=== PATIENT | male | born 1970 | race Two or more races ===

== ENCOUNTER 2024-10-16 10:25 | Inpatient (IN) | payer MEDICAID, OTHER ==
[~2024-10-16] VITALS: Ht 190.5 cm; Wt 110.0 kg
--- NOTE | 2024-10-16 10:34 | ED.PDOC ---
History of Present Illness HPI Comments 54-year-old male with PMHx CHF, HTN, DM brought in by EMS presents with a chief complaint of chest pain, nausea, vomiting, diaphoresis, and hematemesis. Patient was found in his car in the [employer] parking lot with bright red blood on the ground and dark red blood in the floorboard of the car. Patient also reports that he is having chest tightness and was placed on Oxygen and given NTG. Patient has not been compliant with his medications per EMS. Patient did have one episode of losing consciousness per EMS. Patient arrived pale in color and diaphoretic. Time Seen by MD: 10:20 Reviewed Notes: Medications, Allergies Allergies: Coded Allergies: NO KNOWN ALLERGIES (Unverified , 10/16/24) Information Source: Patient, Emergency Med Personnel Mode of Arrival: EMS Severity: Moderate Timing: Hours Duration: Since onset Prehospital treatment: 12 Lead EKG, Asp Net Programmer, IVF Past Medical History PAST MEDICAL HISTORY: CHF, DM, HTN Surgical History: Denies all surgeries Family History Family History: Reviewed,noncontributory to illness Social History Smoker: Non-Smoker Alcohol: Denies ETOH Use Drugs: Denies Drug Use Lives In: Home Constitutional: denies: chills, diaphoresis, fatigue, fever, malaise, sweats, weakness, others EENTM: denies: blurred vision, double vision, ear bleeding, ear discharge, ear drainage, ear pain, ear ringing, eye pain, eye redness, hearing loss, mouth pain, mouth swelling, nasal discharge, nose bleeding, nose congestion, nose pain, photophobia, tearing, throat pain, throat swelling, voice changes, others Respiratory: denies: cough, hemoptysis, orthopnea, SOB at rest, shortness of breath, SOB with excertion, stridor, wheezing, others Cardiovascular: reports: chest pain, diaphoresis; denies: dizzy spells, Dyspnea on exertion, edema, irregular heart beat, left arm pain, lightheadedness, palpi tations, PND, syncope, others Gastrointestinal: reports: hematemesis, nausea, vomiting; denies: abdomen distended, abdominal pain, blood streaked bowels, constipated, diarrhea, dysphagia, difficulty swallowing, melena, poor appetite, poor fluid intake, rectal bleeding, rectal pain, others Genitourinary: denies: burning, dysuria, flank pain, frequency, hematuria, incontinence, penile discharge, penile sore, pain, testicle pain, testicle swelling, urgency, others Neurological: denies: dizziness, fainting, headache, left sided numbness, left sided weakness, numbness, paresthesia, pre-existing deficit, right sided numbness, right sided weakness, seizure, speech problems, tingling, tremors, weakness, others Musculoskeletal: denies: back pain, gout, joint pain, joint swelling, muscle pain, muscle stiffness, neck pain, others Integumetry: denies: bruises, change in color, change in hair/nails, dryness, laceration, lesions, lumps, rash, wounds, others Allergic/Immunocompromised: denies: Difficulty Healing, Frequent Infections, Hives, Itching, others Hematologic/Lymphatic: denies: anemia, blood clots, easy bleeding, easy bruising, swollen glands, others Endocrine: denies: excessive hunger, excessive sweating, excessive thirst, excessive urination, flushing, intolerance to cold, intolerance to heat, unexplained weight gain, unexplained weight loss, others Psychiatric: denies: anxiety, bipolar disorder, depression, hopeless, panic disorder, schizophrenia, sleepless, suicidal, others All Other Systems: Reviewed and Negative Physical Exam General Appearance: Moderate Distress, Normal HEENT: Normal ENT Inspection, Pharynx Normal, TMs Normal Neck: Full Range of Motion, Non-Tender, Normal, Normal Inspection Respiratory: Chest Non-Tender, Lungs Clear, No Accessory Muscle Use, No Respiratory Distress, Normal Breath Sounds Cardiovascular: No Edema, No JVD, No Murmur, No Gallop, Normal Peripheral Pulses, Regular Rate/Rhythm Breast Exam: Deferred Gastrointestinal: No Organomegaly, Non Tender, No Pulsatile Mass, Normal Bowel Sounds, Soft Genitalia: Deferred Pelvic: Deferred Rectal: Deferred Extremities: No calf tenderness, Normal capillary refill, Normal inspection, Normal range of motion, Non-tender, No pedal edema Musculoskeletal : Apperance: Normal Neurologic: Alert, preboarder II-XII nml as Tested, No Motor Deficits, Normal Affect, Normal Mood, No Sensory Deficits Cerebellar Function: NOT DONE Reflexes: NOT DONE Skin: Dry, Pallor, Warm Peripheral Pulses: 3+ Radial (R), 3+ Radial (L) Lymphatic: No Adenopathy Was a procedure done? Was a procedure done?: No EKG EKG : Pulse Rate (adult): 93 [place]: Normal Cardiac Rhythm: NSR Block: None Hypertrophy: None ST: Normal Differential Dx Considerations may include: Anemia Electrolyte imbalance X-Ray, Labs, Meds, VS Vital Signs Date Time Temp Pulse Resp B/P (MAP) Pulse Ox O2 Delivery O2 Flow Rate FiO2 10/16/24 10:34 93 10/16/24 10:26 93 10/16/24 10:25 97.5 116 18 149/97 (114) 98 97.5 Lab Test 10/16/24 10:33 Range/Units White Blood Count Pending Red Blood Count Pending Hemoglobin Pending Hematocrit Pending Mean Corpuscular Volume Pending Mean Corpuscular Hemoglobin Pending Mean Corpuscular Hemoglobin Concent Pending Red Cell Distribution Width Pending Platelet Count Pending Mean Platelet Volume Pending Neutrophils (%) (Auto) Pending Lymphocytes (%) (Auto) Pending Monocytes (%) (Auto) Pending Basophils (%) (Auto) Pending Neutrophils # (Auto) Pending Lymphocytes # (Auto) Pending Monocytes # (Auto) Pending Sodium Level Pending Potassium Level Pending Chloride Level Pending Carbon Dioxide Level Pending Anion Gap Pending Blood Urea Nitrogen Pending Creatinine Pending Glomerular Filtration Rate Calc Pending BUN/Creatinine Ratio Pending Serum Glucose Pending Calcium Level Pending Troponin I High Sensitivity Pending Current Medications Medications (Trade) Dose Ordered Sig/Jakob Route Start Time Stop Time Status Last Admin Sodium Chloride 1,000 ml @ 1,000 mls/hr Q1H ONCE IV 10/16/24 10:30 10/16/24 11:29 10/16/24 10:40 Patient alert. Complaining of chest pain nausea vomiting. Abdomen is soft nontender. Vitals stable. Saturation pristine on room air. He did have blood in his car from in his vomiting. Has been having rectal bleeding prior to this. Establish intravenous access. Was given fluids. Was started on Protonix drip. GI consultation. Reviewed his history. Continue to monitor. EKG reviewed does not show any acute changes. Time of 1ST Reevaluation: 10:50 Reevaluation 1ST: Unchanged Patient Education/Counseling: Diagnosis, Treatment Family Education/Counseling: No Family Present Departure 1 Departure Time of Disposition: 10:42 Impression: Primary Impression: GI bleed Qualified Codes: K92.2 - Gastrointestinal hemorrhage, unspecified Additional Impressions: Chest pain of unknown etiology Uncontrolled diabetes mellitus Qualified Codes: E13.65 - Other specified diabetes mellitus with hyperglycemia Disposition: ADMITTED INPATIENT Admit to: Med Surg Condition: Guarded Critical Care Note Critical Care Time?: Yes (90 min-critical care time only) Critical care comment: GI bleed started Protonix continue to monitor Stability Stability form required: No Heart Score Heart Score: Heart Score Response (Comments) Value History Slightly Suspicious 0 EKG Normal 0 Age 45-64 1 Risk Factors >3 or Hx ASHD 2 Troponin Normal limit 0 Total 3 I personally scribed for NUSRAT JUAREZ MD ([email or web address]) on 10/16/24 at 10:34. Electronically submitted by Aj Edgar ([email or web address]). NUSRAT JUAREZ MD Oct 16, 2024 10:34
[2024-10-16] MEDS: SODIUM CHLORIDE 0.9% 1,000 ML IV ONE ×2 (10:40→11:18)
[2024-10-16 10:41] LABS: Basophils # (auto) 0 10 ^3/uL (0-0.2); Basophils % (auto) 0.4 % (0.0-2.0); Eosinophils # (auto) 0.1 10 ^3/uL (0-0.8); Eosinophils % (auto) 0.5 % (0.0-7.0); Hematocrit 34.4 % (41.0-53.0); Hemoglobin 11.2 g/dL (13.5-17.5); Lymphocytes # (auto) 2.8 10 ^3/uL (0.4-5.4); Lymphocytes % (auto) 23.4 % (10.0-50.0); Mean Corpuscular Hemoglobin 27.5 pg (28.0-32.0); Mean Corpuscular Hgb Conc. 32.6 g/dL (32.0-36.0); Mean Corpuscular Volume 84.4 fL (80.0-100.0); Monocytes # (auto) 0.6 10 ^3/uL (0-1.3); Monocytes % (auto) 5.3 % (0.0-12.0); Neutrophils # (auto) 8.5 10 ^3/uL (1.6-8.6); Neutrophils % (auto) 70.4 % (37.0-80.0); Nucleated Red Blood Cells % 0.1 %; Platelet Count (auto) 312 10^3/uL (140-450); Red Blood Cells 4.07 10^6/uL (4.5-5.90); Red Cell Distribution Width 15.5 % (11.8-14.3); White Blood Cell 12.1 10^3/uL (4.4-10.8)
[2024-10-16 10:51] LABS: Anion Gap 9 (5-15); Carbon Dioxide 20 mmol/L (20-31); Potassium 4.8 mmol/L (3.5-5.1); Sodium 138 mmol/L (136-145)
[2024-10-16 10:52] LABS: Calcium 8.8 mg/dL (8.7-10.4)
[2024-10-16 10:56] LABS: Chloride 109 mmol/L (98-107)
[2024-10-16 10:57] LABS: BUN/Creatinine Ratio 33.9 (10.0-20.0); Blood Urea Nitrogen 40 mg/dL (9-23); Glucose 303 mg/dL (74-106)
--- NOTE | 2024-10-16 11:08 | DVH ---
CHEST RADIOGRAPH Indication: sob Technique: Single frontal view of the chest was obtained Comparison: None FINDINGS: The cardiac silhouette is enlarged. The lungs demonstrate perihilar airspace opacities. The pulmonary vasculature is prominent. There is no pleural effusion.. There is no pneumothorax. IMPRESSION: 1. Cardiomegaly with pulmonary vascular congestion and bilateral perihilar airspace opacities.
[2024-10-16] MEDS: PANTOPRAZOLE 80 MG in SODIUM CHL 0.9% 100 ML IV ONE (11:36)
[2024-10-16] MEDS ORDERED: LISI10TA34 PO (14:07)
[2024-10-16] MEDS ORDERED: FURO40TA4 PO (14:07)
[2024-10-16] MEDS ORDERED: GLIP5TAB21 PO (14:07)
[2024-10-16] MEDS ORDERED: SPIR25TA8 PO (14:07)
[2024-10-16] MEDS ORDERED: IPRATROPIUM BROM 0.5 MG/2.5ML INH SOL NEB PRN (14:15)
[2024-10-16] MEDS ORDERED: ALBUTEROL SULF 2.5 MG/0.5ML(0.5%) NEB SOLN NEB PRN (14:15)
[2024-10-16 14:25] LABS: LDL Cholesterol 89 mg/dL (< 100); Triglycerides 171 mg/dL (< 150)
[2024-10-16 14:26] LABS: Cholesterol 147 mg/dL (< 200)
[2024-10-16 14:28] LABS: HDL Cholesterol 36 mg/dL (40-59)
[2024-10-16 15:00] VITALS: O2SAT 97
--- NOTE | 2024-10-16 15:04 | DVHHP2 ---
History of Present Illness Reason for Visit: Vomiting blood History of Present Illness A 54-year-old male with a history of CHF, hypertension, diabetes, and obesity was brought to the emergency department by EMS after being found in his car at a [employer] parking lot with evidence of gastrointestinal bleeding. Patient reports hematemesis associated with nausea and hematochezia starting today prior. EMS noted blood on the ground outside the vehicle and dark red blood inside the car. Patient also complains of chest tightness, for which he was given oxygen and nitroglycerin by EMS. Upon assessment, no abdominal pain or chest pain was reported and he denies any known history of GI bleeding. Patient was noted to be pale and diaphoretic upon EMS arrival. There is also a reported episode of syncope, per EMS, and noncompliance with medications. Past Medical History As stated in HPI Past Surgical History Laminectomy Past Social History The patient lives at home, denies smoking, alcohol or illicit drugs abuse. Review of Systems Constitutional: Yes: Malaise; No: Fever, Chills, Sweats, Weakness, Other Eyes: No: Pain, Vision change, Conjunctivae inflammation, Eyelid inflammation, Other, Redness ENT: No: Ear pain, Ear discharge, Nose pain, Nose discharge, Nose congestion, Mouth pain, Mouth swelling, Throat pain, Throat swelling, Other Respiratory: No: Cough, Dry, Shortness of breath, SOB with excertion, Wheezing, Hemoptysis, Pleuritic Pain, Sputum, Wheezing, Other Cardiovascular: No: Chest Pain, Palpitations, Orthopnea, Paroxysmal Noc. Dyspnea, Edema, Lt Headedness, Other Gastrointestinal: Nausea, Vomiting, Abdominal Pain, Melena, Hematochezia; No: Diarrhea, Constipation, Other Genitourinary: No Dysuria, No Frequency, No Incontinence, No Hematuria, No Retention, No Other Musculoskeletal: No: other, neck pain, shoulder pain, arm pain, back pain, hand pain, leg pain, foot pain Skin: No: Rash, Lesions, Jaundice, Bruising, Other Neurological: No: Weakness, Numbness, Incoordination, Change in speech, Confusion, Seizures, Other Allergies: Coded Allergies: NO KNOWN ALLERGIES (Unverified , 10/16/24) Medications Current Medications Medications Dose Ordered Sig/Jakob Route Start Time Stop Time Status Last Admin Dose Admin Ceftriaxone Sodium 50 ml @ 100 mls/hr DAILY@09 IV 10/17/24 09:00 UNV Metronidazole 100 ml @ 100 mls/hr Q8HR IV 10/16/24 22:00 UNV Glipizide 5 mg BID PO 10/16/24 22:00 UNV Spironolactone 25 mg DAILY PO 10/17/24 10:00 UNV Patient Own Medication 1 tab DAILY PO 10/17/24 10:00 UNV Albuterol 2.5 mg Q4HPRN PRN NEB 10/16/24 14:15 UNV Ipratropium [place] 0.5 mg Q4HPRN PRN NEB 10/16/24 14:15 UNV Exam Vital Signs Vital Signs Date Time Temp Pulse Resp B/P (MAP) Pulse Ox O2 Delivery O2 Flow Rate FiO2 10/16/24 14:00 98.0 75 15 153/87 (109) 99 98.0 10/16/24 10:50 Nasal Cannula* 2 28 General Appearance: Alert, Oriented X3, Cooperative, mild distress HEENT: Atraumatic, PERRLA, EOMI, Mucous membr. moist/pink Respiratory: Clear to auscultation, Normal air movement Cardiovascular: Regular rate, Normal S1, Normal S2 Abdominal: Normal bowel sounds, Soft, No tenderness Extremities: No clubbing, No cyanosis, No edema, Normal pulses Skin: No rashes Neuro: Normal speech, Normal tone Psych/Mental Status: Mental status NL Labs/Xrays Labs Test 10/16/24 11:47 10/16/24 10:33 Range/Units Troponin I High Sensitivity 9 </=54 ng/L Triglycerides Level 171 H < 150 mg/dL Cholesterol Level 147 < 200 mg/dL LDL Cholesterol 89 < 100 mg/dL HDL Cholesterol 36 L 40-59 mg/dL Thyroid Stimulating Hormone (TSH) 1.05 0.55-4.78 uIU/mL White Blood Count 12.1 H 4.4-10.8 10^3/uL Red Blood Count 4.07 L 4.5-5.90 10^6/uL Hemoglobin 11.2 L 13.5-17.5 g/dL Hematocrit 34.4 L 41.0-53.0 % Mean Corpuscular Volume 84.4 80.0-100.0 fL Mean Corpuscular Hemoglobin 27.5 L 28.0-32.0 pg Mean Corpuscular Hemoglobin Concent 32.6 32.0-36.0 g/dL Red Cell Distribution Width 15.5 H 11.8-14.3 % Platelet Count 312 140-450 10^3/uL Mean Platelet Volume 7.2 6.9-10.8 fL Neutrophils (%) (Auto) 70.4 37.0-80.0 % Lymphocytes (%) (Auto) 23.4 10.0-50.0 % Monocytes (%) (Auto) 5.3 0.0-12.0 % Eosinophils (%) (Auto) 0.5 0.0-7.0 % Basophils (%) (Auto) 0.4 0.0-2.0 % Neutrophils # (Auto) 8.5 1.6-8.6 10 ^3/uL Lymphocytes # (Auto) 2.8 0.4-5.4 10 ^3/uL Monocytes # (Auto) 0.6 0-1.3 10 ^3/uL Eosinophils # (Auto) 0.1 0-0.8 10 ^3/uL Basophils # (Auto) 0 0-0.2 10 ^3/uL Nucleated Red Blood Cells 0.1 % Sodium Level 138 136-145 mmol/L Potassium Level 4.8 3.5-5.1 mmol/L Chloride Level 109 H 98-107 mmol/L Carbon Dioxide Level 20 20-31 mmol/L Anion Gap 9 5-15 Blood Urea Nitrogen 40 H 9-23 mg/dL Creatinine 1.18 0.700-1.30 mg/dL Glomerular Filtration Rate Calc 72 >90 mL/min BUN/Creatinine Ratio 33.9 H 10.0-20.0 Serum Glucose 303 H 74-106 mg/dL Hemoglobin A1c 7.7 H <5.7 % A1C Calcium Level 8.8 8.7-10.4 mg/dL PROCEDURE(s): CXRP - CHEST PORTABLE REASON: sob ORDER NUMBER(s): [id number], ACCESSION NUMBER(s): [id number] CHEST RADIOGRAPH Indication: sob Technique: Single frontal view of the chest was obtained Comparison: None FINDINGS: The cardiac silhouette is enlarged. The lungs demonstrate perihilar airspace opacities. The pulmonary vasculature is prominent. There is no pleural effusion.. There is no pneumothorax. IMPRESSION: 1. Cardiomegaly with pulmonary vascular congestion and bilateral perihilar airspace opacities. Assessment/Plan Assessment/Plan # rule out upper GI bleed # rule out lower GI bleed, less likely with hematemesis but bright blood per rectum is concerning Admit to telemetry unit PPI GI consult NPO Monitor H&H, transfuse PRBC for hemoglobin less than 7 IV fluid Stool for guaiac/FOBT # chest pain to rule out ACS Cardiomegaly Echocardiogram Cardiology consult # syncope possibly secondary to blood loss and hypotension Monitor # leukocytosis Empiric antibiotic Blood and urine culture # diabetes type 2, with hyperglycemia A1C 7.7 Insulin sliding scale check A1c Glimepiride, statins # medication noncompliance related to decompensation Education on compliance Plan discussed with: Patient My Orders Orders - SANJEEV MAHAJAN Procedure Category Date Status Time B-Type Natriuretic LAB 10/16/24 In Process Peptide 14:02 Blood Culture ALESHA 10/16/24 In Process 14:02 Ceftriaxone 1gm/50ml PHA 10/17/24 Logged D5w (Rocephin) 09:00 Ceftriaxone 1gm/50ml PHA 10/16/24 Logged D5w (Rocephin) 14:15 Metronidazole PHA 10/16/24 Logged 500mg/100ml (Flagyl 14:15 Metronidazole PHA 10/16/24 Logged 500mg/100ml (Flagyl 22:00 Urinalysis LAB 10/16/24 Logged 14:02 Echo 2d Mode Cardiac US 10/16/24 Logged DOP 14:02 Glipizide Tablet PHA 10/16/24 Logged (Glucotrol Tablet) 22:00 Spironolactone PHA 10/17/24 Logged (Aldactone) 10:00 (Nf) Lisinopril PHA 10/17/24 Logged 10:00 Albuterol Medneb PHA 10/16/24 Logged (Ventolin Medneb) 14:15 Ipratropium Medneb PHA 10/16/24 Logged (Atrovent Medneb) 14:15 Date of Service: Oct 16, 2024 Billing Provider: SANJEEV MAHAJAN Common Visit Codes: [id number] INP/OBS CARE (HIGH) SANJEEV MAHAJAN Oct 16, 2024 15:04
[2024-10-16] MEDS ORDERED: ONDANSETRON HCL 4 MG/2 ML VIAL IV PRN (15:15)
[2024-10-16 15:37] VITALS: BP 153/87; PULSE 75; RESP 15; TEMP 98; O2SAT 99
[2024-10-16] MEDS ORDERED: DEXTROSE (50%) 50ML SYRG IV PRN (16:00)
[2024-10-16] MEDS: SODIUM CHLORIDE 0.9% 1,000 ML IV SCH (16:33)
[2024-10-16] MEDS: cefTRIAXone 1GM/50ML D5W 50 ML IV ONE (16:40)
[2024-10-16] MEDS: metroNIDAZOLE 500MG/100ML 100 ML IV ONE (16:43)
[2024-10-16 16:55] LABS: Urine Bacteria None Seen /hpf (None Seen)
[2024-10-16 17:00] LABS: Urine Blood Negative /uL (Negative); Urine Clarity Clear (Clear); Urine Color Colorless (Yellow); Urine Protein, UAD Negative (Negative); Urine Specific Gravity 1.016 (1.001-1.035); Urine Squamous Epithelial Cell None Seen /hpf (<5); Urine Urobilinogen Normal (Negative); Urine WBC < 1 /HPF (0-3); Urine pH 6.5 (5.0-9.0)
[2024-10-16] MEDS: InsuLIN REG 1unit/0.01ml Soln (100units/ml) SC SCH (18:00)
[2024-10-16] MEDS: ACCU-CHEK COMFORT CURVE STRIP VI SCH (18:13)
--- NOTE | 2024-10-16 21:59 | DVHINCON2 ---
Date of service: Oct 16, 2024 Referring Physician Hortensia Reason for Consultation Chest pain History of Present Illness This is a 54-year-old male with a PMH CHF, HTN, DM who was brought in by EMS with a complaint of chest pain with associated nausea, vomiting, diaphoresis, and hematemesis. Patient was found inside of his car in a [employer] parking lot with bright red blood on the ground and dark red blood on the floorboard of the car. Patient also reports that he is having chest tightness. EMS administered Nitroglycerin. Patient reports noncompliance with his medications. Patient did have one episode of losing consciousness per EMS. EKG shows NSR At 93. WBC 12.1, BUN 40, BNP 36.95, Trig 171, HD 36, HGB A1C 7.7. Chest x-ray shows cardiomegaly with pulmonary vascular congestion and bilateral perihilar airspace opacities. Patient was admitted to the hospital. I am asked to consult on this patient. Allergies: Coded Allergies: NO KNOWN ALLERGIES (Unverified , 10/16/24) Home Meds Reported Medications Furosemide (Furosemide) 40 Mg Tab, 1 TAB PO DAILY 10/16/24 Spironolactone (Spironolactone) 25 Mg Tab, 1 TAB PO DAILY 10/16/24 Glipizide (Glipizide) 5 Mg Tab, 1 TAB PO BID 10/16/24 Lisinopril (Lisinopril) 10 Mg Tab, 1 TAB PO DAILY 10/16/24 Current Medications Current Medications Medications (Trade) Dose Ordered Sig/Jakob Route PRN Reason Start Time Stop Time Status Last Admin Ceftriaxone Sodium 50 ml @ 100 mls/hr DAILY@09 IV 10/17/24 09:00 Metronidazole 100 ml @ 100 mls/hr Q8HR IV 10/16/24 22:00 Glipizide (Glucotrol Tablet) 5 mg BID PO 10/16/24 22:00 Spironolactone (Aldactone) 25 mg DAILY PO 10/17/24 10:00 Lisinopril (Zestril Tablet) 10 mg DAILY PO 10/17/24 10:00 Albuterol (Ventolin Medneb) 2.5 mg Q4HPRN PRN NEB SHORTNESS OF BREATH 10/16/24 14:15 Ipratropium [place] (Atrovent Medneb) 0.5 mg Q4HPRN PRN NEB SHORTNESS OF BREATH 10/16/24 14:15 Pantoprazole Sodium (Protonix) 40 mg BID IV 10/16/24 22:00 Sodium Chloride 1,000 ml @ 100 mls/hr Q10H IV 10/16/24 15:15 Ondansetron HCl (Zofran) 4 mg Q4HP PRN IV NAUSEA / VOMITING 10/16/24 15:15 Diagnostic Test (Pha) (Accu-Chek Comfort Curve T) 1 strip Q6HR 10/16/24 18:00 Insulin Human Regular (InsuLIN R) Q6HR SC 10/16/24 18:00 Dextrose 50 ml UD PRN IV Blood Sugar LESS THAN 60 10/16/24 16:00 Atorvastatin Calcium (Lipitor) 40 mg HS PO 10/16/24 22:00 Review of Systems Constitutional: denies: chills, diaphoresis, fatigue, fever, malaise, sweats, weakness, others EENTM: denies: blurred vision, double vision, ear bleeding, ear discharge, ear drainage, ear pain, ear ringing, eye pain, eye redness, hearing loss, mouth pain, mouth swelling, nasal discharge, nose bleeding, nose congestion, nose pain, photophobia, tearing, throat pain, throat swelling, voice changes, others Respiratory: denies: cough, hemoptysis, orthopnea, SOB at rest, shortness of breath, SOB with excertion, stridor, wheezing, others Cardiovascular: reports: chest pain, diaphoresis; denies: dizzy spells, Dyspnea on exertion, edema, irregular heart beat, left arm pain, lightheadedness, palpitations, PND, syncope, others Gastrointestinal: reports: hematemesis, nausea, vomiting; denies: abdomen distended, abdominal pain, blood streaked bowels, constipated, diarrhea, dysphagia, difficulty swallowing, melena, poor appetite, poor fluid intake, rectal bleeding, rectal pain, others Genitourinary: denies: burning, dysuria, flank pain, frequency, hematuria, incontinence, penile discharge, penile sore, pain, testicle pain, testicle swelling, urgency, others Neurological: denies: dizziness, fainting, headache, left sided numbness, left sided weakness, numbness, paresthesia, pre-existing deficit, right sided numbness, right sided weakness, seizure, speech problems, tingling, tremors, weakness, others Musculoskeletal: denies: back pain, gout, joint pain, joint swelling, muscle pain, muscle stiffness, neck pain, others Integumetry: denies: bruises, change in color, change in hair/nails, dryness, laceration, lesions, lumps, rash, wounds, others Allergic/Immunocompromised: denies: Difficulty Healing, Frequent Infections, Hives, Itching, others Hematologic/Lymphatic: denies: anemia, blood clots, easy bleeding, easy bruisi ng, swollen glands, others Endocrine: denies: excessive hunger, excessive sweating, excessive thirst, exce ssive urination, flushing, intolerance to cold, intolerance to heat, unexplained weight gain, unexplained weight loss, others Psychiatric: denies: anxiety, bipolar disorder, depression, hopeless, panic disorder, schizophrenia, sleepless, suicidal, others All Other Systems: Reviewed and Negative Vital Signs Vital Signs Date Time Temp Pulse Resp B/P (MAP) Pulse Ox O2 Delivery O2 Flow Rate FiO2 10/16/24 15:37 98.0 75 15 153/87 99 2.0 28 98.0 10/16/24 15:00 Nasal Cannula Physical Exam GENERAL: Alert and oriented x 3. No acute distress. Obese. EYES: PERRL, EOMI. Anicteric. HENT: Moist mucous membranes. LUNGS: Clear to auscultation bilaterally. CARDIOVASCULAR: Regular rate and rhythm. ABDOMEN: Soft, nontender and nondistended. EXTREMITIES: No edema. NEUROLOGIC: No focal neurological deficits. SKIN: Warm, dry. Labs/Diagnostic Data Labs Test 10/16/24 11:47 10/16/24 10:33 Range/Units Troponin I High Sensitivity 9 </=54 ng/L Triglycerides Level 171 H < 150 mg/dL Cholesterol Level 147 < 200 mg/dL LDL Cholesterol 89 < 100 mg/dL HDL Cholesterol 36 L 40-59 mg/dL Thyroid Stimulating Hormone (TSH) 1.05 0.55-4.78 uIU/mL White Blood Count 12.1 H 4.4-10.8 10^3/uL Red Blood Count 4.07 L 4.5-5.90 10^6/uL Hemoglobin 11.2 L 13.5-17.5 g/dL Hematocrit 34.4 L 41.0-53.0 % Mean Corpuscular Volume 84.4 80.0-100.0 fL Mean Corpuscular Hemoglobin 27.5 L 28.0-32.0 pg Mean Corpuscular Hemoglobin Concent 32.6 32.0-36.0 g/dL Red Cell Distribution Width 15.5 H 11.8-14.3 % Platelet Count 312 140-450 10^3/uL Mean Platelet Volume 7.2 6.9-10.8 fL Neutrophils (%) (Auto) 70.4 37.0-80.0 % Lymphocytes (%) (Auto) 23.4 10.0-50.0 % Monocytes (%) (Auto) 5.3 0.0-12.0 % Eosinophils (%) (Auto) 0.5 0.0-7.0 % Basophils (%) (Auto) 0.4 0.0-2.0 % Neutrophils # (Auto) 8.5 1.6-8.6 10 ^3/uL Lymphocytes # (Auto) 2.8 0.4-5.4 10 ^3/uL Monocytes # (Auto) 0.6 0-1.3 10 ^3/uL Eosinophils # (Auto) 0.1 0-0.8 10 ^3/uL Basophils # (Auto) 0 0-0.2 10 ^3/uL Nucleated Red Blood Cells 0.1 % Sodium Level 138 136-145 mmol/L Potassium Level 4.8 3.5-5.1 mmol/L Chloride Level 109 H 98-107 mmol/L Carbon Dioxide Level 20 20-31 mmol/L Anion Gap 9 5-15 Blood Urea Nitrogen 40 H 9-23 mg/dL Creatinine 1.18 0.700-1.30 mg/dL Glomerular Filtration Rate Calc 72 >90 mL/min BUN/Creatinine Ratio 33.9 H 10.0-20.0 Serum Glucose 303 H 74-106 mg/dL Hemoglobin A1c 7.7 H <5.7 % A1C Calcium Level 8.8 8.7-10.4 mg/dL B-Type Natriuretic Peptide 36.95 0-100 pg/mL Assessment Chest pain. Syncope. Leukocytosis. Diabetes type 2, with hyperglycemia. Medication noncompliance. Hypertension. Obese . Plan/Recommendation I agree with your ongoing assessment and care of plan. Telemetry reviewed. Echocardiogram. Lipitor. IV antibiotics as ordered. Lisinopril. GI prophylactics. Additional plan as per the hospital course. A total of 45 minutes was spent reviewing the patient record, examining the patient, making a diagnostic and therapeutic plan, discussing this plan with medical personnel, following up on diagnostic studies and following the patient for clinical stability excluding any and all procedures. At least 50% of this time was spent in direct, [id number] contact. Plan discussed with: Patient REGINE RODRIGUEZ MD Oct 16, 2024 16:19
[2024-10-16] MEDS: ATORVASTATIN 20 MG TAB PO SCH (22:00)
[2024-10-16] MEDS: glipiZIDE 5 MG TAB PO SCH (22:00)
[2024-10-16] MEDS ORDERED: COLCPOW2 PO (22:31)
[2024-10-16] MEDS: metroNIDAZOLE 500MG/100ML 100 ML IV SCH (22:31)
[2024-10-16] MEDS ORDERED: ALLO100T PO (22:31)
[2024-10-16] MEDS ORDERED: ASPI-543 PO (22:31)
[2024-10-16] MEDS ORDERED: POTA-36 PO (22:31)
[2024-10-16] MEDS ORDERED: BENZ200C64 PO (22:31)
[2024-10-16] MEDS ORDERED: PRED20TA2 PO (22:31)
[2024-10-16] MEDS: PANTOPRAZOLE 40 MG/10 ML VIAL INJ IV SCH (22:31)
[2024-10-17] VITALS (10 sets, daily range): BP systolic 122–153; BP diastolic 70–94; PULSE 68–78; RESP 17–19; TEMP 96.4–98.4; O2SAT 93–99
[2024-10-17 08:02] LABS: Basophils # (auto) 0.1 10 ^3/uL (0-0.2); Basophils % (auto) 0.6 % (0.0-2.0); Eosinophils # (auto) 0.2 10 ^3/uL (0-0.8); Eosinophils % (auto) 1.7 % (0.0-7.0); Hematocrit 30.8 % (41.0-53.0); Lymphocytes # (auto) 2.7 10 ^3/uL (0.4-5.4); Lymphocytes % (auto) 26.8 % (10.0-50.0); Mean Corpuscular Hemoglobin 27.5 pg (28.0-32.0); Mean Corpuscular Hgb Conc. 32.4 g/dL (32.0-36.0); Mean Corpuscular Volume 84.7 fL (80.0-100.0); Monocytes # (auto) 0.4 10 ^3/uL (0-1.3); Monocytes % (auto) 4.3 % (0.0-12.0); Neutrophils # (auto) 6.7 10 ^3/uL (1.6-8.6); Neutrophils % (auto) 66.6 % (37.0-80.0); Nucleated Red Blood Cells % 0.1 %; Platelet Count (auto) 315 10^3/uL (140-450); Red Blood Cells 3.63 10^6/uL (4.5-5.90); Red Cell Distribution Width 15.3 % (11.8-14.3)
[2024-10-17 08:19] LABS: Alanine Aminotransferase 18 U/L (7-40); Albumin 3.5 g/dL (3.2-4.8); Alkaline Phosphatase 87 U/L (46-116); Anion Gap 6 (5-15); BUN/Creatinine Ratio 29.9 (10.0-20.0); Bilirubin, Total 0.5 mg/dL (0.2-1.0); Carbon Dioxide 23 mmol/L (20-31); Potassium 4.5 mmol/L (3.5-5.1); Sodium 140 mmol/L (136-145); Total Protein 5.8 g/dL (5.7-8.2)
[2024-10-17 08:20] LABS: Aspartate Aminotransferase 10 U/L (13-40); Blood Urea Nitrogen 29 mg/dL (9-23); Chloride 111 mmol/L (98-107); Glucose 146 mg/dL (74-106)
[2024-10-17] MEDS: cefTRIAXone 1GM/50ML D5W 50 ML IV SCH (09:08)
--- NOTE | 2024-10-17 09:52 | DVHSR ---
APPROVED REPORT EXAM: Two-dimensional and M-mode echocardiogram with Doppler and color Doppler. Blood Pressure: 153/87 mmHg INDICATION CHF exacerbation RISK FACTORS Height: 72, Weight: 240 DIMENSIONS LVDd5.5 (3.8-5.7cm)LA (2D)4.6 (1.9-4.0cm)Aortic Root4.3 (2.0-3.7cm) LVDs4.6 (2.5-4.0cm)LA (MM) (1.9-4.0cm)Aortic Cusp Exc1.2 (1.5-2.0cm) EF (%) 35.0 (55-70%)Rt. Atrium4.8 (1.9-4.0cm)Asc. Aorta cm IVSd1.4 (0.7-1.1cm)RV (D) (1.8-2.4cm) PWd1.7 (0.7-1.1cm) Mitral Valve MitralMitral Stenosis E wave0.41m/sMV Mean GR.1mmHg A wave0.81m/sMV Peak GR.44mmHg E/A ratio0.52D MVAcm2 DECEL [id number] 1/2 [id number] IVRTmsDop MVA3.03cm2 Aortic Valve Aortic ValveAortic Stenosis V10.62m/Brandon Mean GR.3mmHg V21.15m/Brandon Peak GR.5mmHg LVOT Diameter2.4 (1.8-2.4cm)Doppler AVA2.44cm2 Pulmonic Valve V20.91m/s Tricuspid Valve TR Velocity2.73m/s [id number] Conclusion lvef 30% severe LVH normal rv functin left atrium enlarged moderate MAC no severe valve abnormalities noted
[2024-10-17] MEDS: SPIRONOLACTONE 25 MG TAB PO SCH (10:33)
[2024-10-17] MEDS: LISINOPRIL 5 MG TAB PO SCH (10:33)
--- NOTE | 2024-10-17 13:43 | DVHINCON2 ---
GI Consult Consult Note GI consult note Date of Consultation: 10/17/2024 Chief Complaint: GI bleed Referring Physician:Hortensia lyon H&P: 54-year-old male with past medical history of CHF, hypertension, diabetes and obesity brought to the ER with evidence of GI bleed Patient has history of gout and recently treated with steroids and colchicine along with allopurinol Patient reports episodes of hematemesis two days ago, and yesterday was coffee- ground emesis. Also has noticed red blood with wiping after bowel movements. Last bowel movement two days ago and reports stool as being dark to black. No abdominal pain. No nausea or vomiting. No history of EGD in past Patient is being seen by Cardiology due to reports of chest pain during admission Per chart patient is noncompliant with medications Past Medical History: CHF, hypertension, diabetes, obesity and gout Past Surgical History: Laminectomy Social History: NO smoking, drinking ETOH and use of illegal drugs. Family History: Noncontributory Review of Systems: Constitutional: no fever, chill, weight loss HEENT: no eye pain, no hearing loss, no oral lesion, no scleral icterus Heart: no chest pain, no chest pressure Lung: no cough, no dyspnea with exertion Abdomen: see HPI Physical exam: General: NAD, AAOX3 Chest: lung ely clear to auscultation Heart: RRR, no murmur Abdomen: non-distended, no tenderness to palpation, +BS Labs: Labs Test 10/17/24 11:46 10/17/24 07:32 10/16/24 11:47 10/16/24 10:33 Range/Units POC Glucose 151 H 70-106 mg/dl White Blood Count 10.0 4.4-10.8 10^3/uL Red Blood Count 3.63 L 4.5-5.90 10^6/uL Hemoglobin 10.0 L 13.5-17.5 g/dL Hematocrit 30.8 #L 41.0-53.0 % Mean Corpuscular Volume 84.7 80.0-100.0 fL Mean Corpuscular Hemoglobin 27.5 L 28.0-32.0 pg Mean Corpuscular Hemoglobin Concent 32.4 32.0-36.0 g/dL Red Cell Distribution Width 15.3 H 11.8-14.3 % Platelet Count 315 140-450 10^3/uL Mean Platelet Volume 7.1 6.9-10.8 fL Neutrophils (%) (Auto) 66.6 37.0-80.0 % Lymphocytes (%) (Auto) 26.8 10.0-50.0 % Monocytes (%) (Auto) 4.3 0.0-12.0 % Eosinophils (%) (Auto) 1.7 0.0-7.0 % Basophils (%) (Auto) 0.6 0.0-2.0 % Neutrophils # (Auto) 6.7 1.6-8.6 10 ^3/uL Lymphocytes # (Auto) 2.7 0.4-5.4 10 ^3/uL Monocytes # (Auto) 0.4 0-1.3 10 ^3/uL Eosinophils # (Auto) 0.2 0-0.8 10 ^3/uL Basophils # (Auto) 0.1 0-0.2 10 ^3/uL Nucleated Red Blood Cells 0.1 % Sodium Level 140 136-145 mmol/L Potassium Level 4.5 3.5-5.1 mmol/L Chloride Level 111 H 98-107 mmol/L Carbon Dioxide Level 23 20-31 mmol/L Anion Gap 6 5-15 Blood Urea Nitrogen 29 #H 9-23 mg/dL Creatinine 0.97 0.700-1.30 mg/dL Glomerular Filtration Rate Calc 92 >90 mL/min BUN/Creatinine Ratio 29.9 H 10.0-20.0 Serum Glucose 146 #H 74-106 mg/dL Calcium Level 9.0 8.7-10.4 mg/dL Total Bilirubin 0.5 0.2-1.0 mg/dL Aspartate Amino Transferase (AST) 10 L 13-40 U/L Alanine Aminotransferase (ALT) 18 7-40 U/L Alkaline Phosphatase 87 46-116 U/L Total Protein 5.8 5.7-8.2 g/dL Albumin 3.5 3.2-4.8 g/dL Troponin I High Sensitivity 9 </=54 ng/L Triglycerides Level 171 H < 150 mg/dL Cholesterol Level 147 < 200 mg/dL LDL Cholesterol 89 < 100 mg/dL HDL Cholesterol 36 L 40-59 mg/dL Thyroid Stimulating Hormone (TSH) 1.05 0.55-4.78 uIU/mL Hemoglobin A1c 7.7 H <5.7 % A1C B-Type Natriuretic Peptide 36.95 0-100 pg/mL Test 10/16/24 00:00 Range/Units Urine Color Colorless Yellow Urine Clarity Clear Clear Urine pH 6.5 5.0-9.0 Urine Specific [place] 1.016 1.001-1.035 Urine Protein Negative Negative Urine Ketones Negative Negative Urine Blood Negative Negative /uL Urine Nitrite Negative Negative Urine Bilirubin Negative Negative Urine Urobilinogen Normal Negative mg/dL Urine Leukocyte Esterase Negative Negative /uL Urine RBC <1 0 - 3 /hpf Urine Microscopic WBC < 1 0-3 /HPF Urine Squamous Epithelial Cells None seen <5 /hpf Urine Bacteria None seen None Seen /hpf Urine Glucose Normal Normal mg/dL Imaging: Chest x-ray IMPRESSION: 1. Cardiomegaly with pulmonary vascular congestion and bilateral perihilar airspace opacities. Assessment: GI bleed Chest pain Syncope Plan: Discussed with Dr. Serrano - Pt will be scheduled for an EGD tomorrow 10/18/2024. Pt was informed of the risks (bleeding, infection, perforation, reaction to sedation medications and cardiopulmonary arrest) and benefit and is agreeable to undergo the procedures. Protonix and Carafate Request for cardiac clearance for EGD with sedation Discussed plan with patient and RN Thank you for this consult Date of Service: Oct 17, 2024 Billing Provider: SHANICE FUNG Common Visit Codes: CONSULT ONLY Consultation Codes: [id number] CONSULT <60MIN SHANICE FUNG Oct 17, 2024 13:43
--- NOTE | 2024-10-17 16:25 | DVHPN2 ---
Progress Note Date Seen: Oct 17, 2024 Medical Necessity Reason Pt with a Central, PICC or Fol: No Subjective Patient reports: No new complaints Review of Systems: HEENT:Normal, CVS:Normal, RESPIRATORY:Normal, GI:Normal, :Normal, MSK:Normal, NEURO:Normal Objective vital signs Vital Sign Date Time Temp Pulse Resp B/P (MAP) Pulse Ox O2 Delivery O2 Flow Rate FiO2 10/17/24 13:00 96.4 73 17 134/94 (107) 99 96.4 10/17/24 06:56 Room Air* 0 21 Total Intake and Output 10/16/24 10/16/24 10/17/24 15:00 23:00 07:00 Intake Total 450 ml 1100 ml Output Total 1250 ml Balance -800 ml 1100 ml medications Current Medications Medications Dose Ordered Sig/Jakob Route Start Time Stop Time Status Last Admin Dose Admin Ceftriaxone Sodium 50 ml @ 100 mls/hr DAILY@09 IV 10/17/24 09:00 10/17/24 09:08 100 MLS/HR Metronidazole 100 ml @ 100 mls/hr Q8HR IV 10/16/24 22:00 10/17/24 14:50 100 MLS/HR Glipizide 5 mg BID PO 10/16/24 22:00 Spironolactone 25 mg DAILY PO 10/17/24 10:00 10/17/24 10:33 25 MG Lisinopril 10 mg DAILY PO 10/17/24 10:00 10/17/24 10:33 10 MG Albuterol 2.5 mg Q4HPRN PRN NEB 10/16/24 14:15 Ipratropium [place] 0.5 mg Q4HPRN PRN NEB 10/16/24 14:15 Pantoprazole Sodium 40 mg BID IV 10/16/24 22:00 10/17/24 09:08 40 MG Sodium Chloride 1,000 ml @ 100 mls/hr Q10H IV 10/16/24 15:15 10/17/24 03:10 100 MLS/HR Ondansetron HCl 4 mg Q4HP PRN IV 10/16/24 15:15 Diagnostic Test (Pha) 1 strip Q6HR 10/16/24 18:00 10/17/24 11:50 1 STRIP Insulin Human Regular Q6HR SC 10/16/24 18:00 10/17/24 12:09 2 UNITS Dextrose 50 ml UD PRN IV 10/16/24 16:00 Atorvastatin Calcium 40 mg HS PO 10/16/24 22:00 Examination: GENERAL:Normal, HEENT:Normal, NECK:Normal, LUNGS:Normal, CVS:Normal, ABDOMEN:Normal, MSK:Normal, SKIN:Normal, NEURO:Normal, :Normal laboratory and microbiology Laboratory Tests 10/17/24 07:32 Test 10/17/24 07:32 Range/Units Serum Glucose 146 #H 74-106 mg/dL Microbiology Date/Time Source Procedure Growth Status 10/16/24 14:19 Blood Blood Culture - Preliminary NO GROWTH AFTER 24 HOURS OF INCUBATION. Resulted Problem List/Assessment/Plan Problem List/Assessment/Plan #1 gi bleed: ppi, egd in am #2 chronic systolic heart failure #3 dm: ssi #4 htn #5 obesity advance care planning- full code- time spent 18 mins Plan discussed with: Patient My Orders My Orders Orders - ALEXIA BOUCHER MD Procedure Category Date Status Time Ct Ab Pel Wo Con-No CT 10/17/24 Logged Oral Or Iv 16:17 Basic Metabolic Panel LAB 10/18/24 Verified 06:00 PTPTT LAB 10/18/24 Verified 04:00 Complete Blood Count LAB 10/18/24 Verified 06:00 Date of Service: Oct 17, 2024 Billing Provider: ALEXIA BOUCHER MD Common Visit Codes: [id number] INP/OBS CARE(HIGH) Secondary Visit Codes: [id number] CARE PLAN 30 MINUTES ALEXIA BOUCHER MD Oct 17, 2024 16:25
--- NOTE | 2024-10-17 21:11 | DVHPN2 ---
Progress Note - Dictate Date Seen: Oct 17, 2024 Medical Necessity Reason Pt with a Central, PICC or Fol: No Subjective Patient was seen and evaluated in follow up. No overnight events. BUN 29. Prelim blood cultures are negative for growth. Echocardiogram shows an EF of 30%, severe LVH, normal rv function, left atrium enlarged, moderate MAC, no severe valve abnormalities noted. Telemetry reviewed. vital signs Vital Sign Date Time Temp Pulse Resp B/P (MAP) Pulse Ox O2 Delivery O2 Flow Rate FiO2 10/17/24 17:00 97.0 78 18 123/82 (96) 95 97.0 10/17/24 08:00 Room Air* 0 21 Total Intake and Output 10/16/24 10/16/24 10/17/24 15:00 23:00 07:00 Intake Total 450 ml 1100 ml Output Total 1250 ml Balance -800 ml 1100 ml medications Current Medications Medications Dose Ordered Sig/Jakob Route Start Time Stop Time Status Last Admin Dose Admin Ceftriaxone Sodium 50 ml @ 100 mls/hr DAILY@09 IV 10/17/24 09:00 10/17/24 09:08 100 MLS/HR Metronidazole 100 ml @ 100 mls/hr Q8HR IV 10/16/24 22:00 10/17/24 14:50 100 MLS/HR Spironolactone 25 mg DAILY PO 10/17/24 10:00 10/17/24 10:33 25 MG Albuterol 2.5 mg Q4HPRN PRN NEB 10/16/24 14:15 Ipratropium [place] 0.5 mg Q4HPRN PRN NEB 10/16/24 14:15 Pantoprazole Sodium 40 mg BID IV 10/16/24 22:00 10/17/24 09:08 40 MG Ondansetron HCl 4 mg Q4HP PRN IV 10/16/24 15:15 Diagnostic Test (Pha) 1 strip Q6HR 10/16/24 18:00 10/17/24 17:31 1 STRIP Insulin Human Regular Q6HR SC 10/16/24 18:00 10/17/24 12:09 2 UNITS Dextrose 50 ml UD PRN IV 10/16/24 16:00 Atorvastatin Calcium 40 mg HS PO 10/16/24 22:00 objective GENERAL: Alert and oriented x 3. No acute distress. Obese. EYES: PERRL, EOMI. Anicteric. HENT: Moist mucous membranes. LUNGS: Clear to auscultation bilaterally. CARDIOVASCULAR: Regular rate and rhythm. ABDOMEN: Soft, nontender and nondistended. EXTREMITIES: No edema. NEUROLOGIC: No focal neurological deficits. SKIN: Warm, dry. laboratory and microbiology Laboratory Tests 10/17/24 07:32 Test 10/17/24 07:32 Range/Units Serum Glucose 146 #H 74-106 mg/dL Problem List Chest pain. Syncope. Leukocytosis. Diabetes type 2, with hyperglycemia. Medication noncompliance. Hypertension. Obese. Assessment/Plan Continued all current supportive medical care. Lipitor. IV antibiotics as ordered. GI prophylactics. Additional plan as per the hospital course. Plan discussed with: Patient REGINE RODRIGUEZ MD Oct 17, 2024 21:11
[2024-10-18] VITALS (10 sets, daily range): BP systolic 115–150; BP diastolic 62–96; PULSE 62–85; RESP 13–84; TEMP 79.6–98.9; O2SAT 94–100
--- NOTE | 2024-10-18 03:23 | DVH ---
Exam: CT CT AB PEL WO CON-NO ORAL OR IV History: ABD PAIN Comparison Study: None Technique: Multidetector spiral CT of the abdomen was performed from lung bases to pubic symphysis. I maging was performed without IV contrast. Axial, coronal and sagittal multiplanar reformats were obta ined from the axial data set by the technologist. Radiation Dose : 1. Abdomen/Pelvis: CTDIvol 21.11 mGy, DLP 1278.83 mGy*cm. Findings: Evaluation of solid organs is limited due to lack of intravenous contrast use. Lung Bases: Dependent atelectasis. Cardiomegaly. Coronary artery calcifications. Vascular calcificati ons of the aorta. Liver: The liver is normal in size. No focal lesions. Gallbladder and Biliary Tree: Unremarkable Spleen: Unremarkable Pancreas: The pancreas is grossly normal in appearance. Adrenal Glands: Unremarkable Kidneys: Kidneys are grossly normal without calculi or hydronephrosis. Bladder: Grossly unremarkable for degree of distention. Bowel: The stomach is grossly normal in appearance. Diverticulosis. Moderate volume colonic stool. No rmal appendix is visualized in the right lower quadrant without findings of appendicitis. Ascites: Absent Lymphadenopathy: No mesenteric, retroperitoneal or periportal lymphadenopathy. Abdominal Wall and Mesentery: Unremarkable. Vasculature: The visualized abdominal aorta is normal in size and caliber. Evaluation of abdominal a nd pelvic vessels is limited due to lack of intravenous contrast. Pelvic Organs: Unremarkable Musculoskeletal: No aggressive focal bony lesions, acute fractures or dislocation. Degenerative johnson es of the spine. IMPRESSION: No acute abdominal or pelvic findings. Radiation optimization: All CT scans at this facility use at least one of these dose optimization bradley hniques: automated exposure control mA and/or kV adjustment per patient size (includes targeted exam s where dose is matched to clinical indication) or iterative reconstruction.
[2024-10-18 06:50] LABS: Potassium 4.2 mmol/L (3.5-5.1); Sodium 139 mmol/L (136-145)
[2024-10-18 06:51] LABS: Anion Gap 7 (5-15); Carbon Dioxide 24 mmol/L (20-31)
[2024-10-18 06:56] LABS: BUN/Creatinine Ratio 18.6 (10.0-20.0); Blood Urea Nitrogen 18 mg/dL (9-23)
[2024-10-18 07:02] LABS: Calcium 8.6 mg/dL (8.7-10.4); Chloride 108 mmol/L (98-107); Glucose 109 mg/dL (74-106); INR 1.01 (0.9-1.15); Partial Thromboplastin Time 24.8 SEC (24.5-34.5); Prothrombin Time 10.7 sec (9.3-11.8)
[2024-10-18 07:08] LABS: Basophils # (auto) 0 10 ^3/uL (0-0.2); Basophils % (auto) 0.7 % (0.0-2.0); Eosinophils # (auto) 0.2 10 ^3/uL (0-0.8); Eosinophils % (auto) 2.7 % (0.0-7.0); Hematocrit 29.3 % (41.0-53.0); Hemoglobin 9.7 g/dL (13.5-17.5); Lymphocytes # (auto) 1.9 10 ^3/uL (0.4-5.4); Lymphocytes % (auto) 27.3 % (10.0-50.0); Mean Corpuscular Hemoglobin 28.3 pg (28.0-32.0); Mean Corpuscular Hgb Conc. 33.2 g/dL (32.0-36.0); Mean Corpuscular Volume 85.2 fL (80.0-100.0); Monocytes # (auto) 0.3 10 ^3/uL (0-1.3); Monocytes % (auto) 4.5 % (0.0-12.0); Neutrophils # (auto) 4.6 10 ^3/uL (1.6-8.6); Neutrophils % (auto) 64.8 % (37.0-80.0); Nucleated Red Blood Cells % 0.1 %; Platelet Count (auto) 284 10^3/uL (140-450); Red Blood Cells 3.44 10^6/uL (4.5-5.90); Red Cell Distribution Width 15.2 % (11.8-14.3)
--- NOTE | 2024-10-18 12:17 | DVHPN2 ---
Progress Note Date Seen: Oct 18, 2024 Medical Necessity Reason Pt with a Central, PICC or Fol: No Subjective Patient reports: No new complaints Review of Systems: HEENT:Normal, CVS:Normal, RESPIRATORY:Normal, GI:Normal, :Normal, MSK:Normal, NEURO:Normal Objective vital signs Vital Sign Date Time Temp Pulse Resp B/P (MAP) Pulse Ox O2 Delivery O2 Flow Rate FiO2 10/18/24 09:00 79.6 72 17 133/83 (100) 99 79.6 10/17/24 20:00 Room Air* 0 21 Total Intake and Output 10/17/24 10/17/24 10/18/24 15:00 23:00 07:00 Intake Total 150 ml 1380 ml 900 ml Balance 150 ml 1380 ml 900 ml medications Current Medications Medications Dose Ordered Sig/Jakob Route Start Time Stop Time Status Last Admin Dose Admin Ceftriaxone Sodium 50 ml @ 100 mls/hr DAILY@09 IV 10/17/24 09:00 10/18/24 10:31 100 MLS/HR Metronidazole 100 ml @ 100 mls/hr Q8HR IV 10/16/24 22:00 10/18/24 05:17 100 MLS/HR Spironolactone 25 mg DAILY PO 10/17/24 10:00 10/17/24 10:33 25 MG Albuterol 2.5 mg Q4HPRN PRN NEB 10/16/24 14:15 Cancel Ipratropium [place] 0.5 mg Q4HPRN PRN NEB 10/16/24 14:15 Cancel Pantoprazole Sodium 40 mg BID IV 10/16/24 22:00 10/18/24 10:31 40 MG Ondansetron HCl 4 mg Q4HP PRN IV 10/16/24 15:15 Diagnostic Test (Pha) 1 strip Q6HR 10/16/24 18:00 10/18/24 11:12 1 STRIP Insulin Human Regular Q6HR SC 10/16/24 18:00 10/18/24 11:32 2 UNITS Dextrose 50 ml UD PRN IV 10/16/24 16:00 Atorvastatin Calcium 40 mg HS PO 10/16/24 22:00 Examination: GENERAL:Normal, HEENT:Normal, NECK:Normal, LUNGS:Normal, CVS:Normal, ABDOMEN:Normal, MSK:Normal, SKIN:Normal, NEURO:Normal, :Normal laboratory and microbiology Laboratory Tests 10/18/24 05:35 Test 10/18/24 05:35 Range/Units Serum Glucose 109 H 74-106 mg/dL Microbiology Date/Time Source Procedure Growth Status 10/16/24 14:19 Blood Blood Culture - Preliminary NO GROWTH AFTER 24 HOURS OF INCUBATION. Resulted Problem List/Assessment/Plan Problem List/Assessment/Plan #1 gi bleed: ppi, egd today #2 chronic systolic heart failure #3 dm: ssi #4 htn #5 obesity advance care planning- full code- time spent 18 mins Plan discussed with: Patient My Orders My Orders Orders - ALEXIA BOUCHER MD Procedure Category Date Status Time Ct Ab Pel Wo Con-No CT 10/17/24 Resulted Oral Or Iv 16:17 Complete Blood Count LAB 10/18/24 Verified 12:15 Date of Service: Oct 18, 2024 Billing Provider: ALEXIA BOUCHER MD Common Visit Codes: [id number] INP/OBS CARE(HIGH) ALEXIA BOUCHER MD Oct 18, 2024 12:17
[2024-10-18 13:09] LABS: Basophils # (auto) 0 10 ^3/uL (0-0.2); Basophils % (auto) 0.5 % (0.0-2.0); Eosinophils # (auto) 0.1 10 ^3/uL (0-0.8); Eosinophils % (auto) 1.4 % (0.0-7.0); Hematocrit 30.3 % (41.0-53.0); Hemoglobin 10.1 g/dL (13.5-17.5); Lymphocytes # (auto) 1.3 10 ^3/uL (0.4-5.4); Lymphocytes % (auto) 20.8 % (10.0-50.0); Mean Corpuscular Hemoglobin 28.2 pg (28.0-32.0); Mean Corpuscular Hgb Conc. 33.2 g/dL (32.0-36.0); Monocytes # (auto) 0.3 10 ^3/uL (0-1.3); Monocytes % (auto) 4.7 % (0.0-12.0); Neutrophils # (auto) 4.5 10 ^3/uL (1.6-8.6); Neutrophils % (auto) 72.6 % (37.0-80.0); Nucleated Red Blood Cells % 0.1 %; Platelet Count (auto) 304 10^3/uL (140-450); Red Blood Cells 3.56 10^6/uL (4.5-5.90); Red Cell Distribution Width 15.6 % (11.8-14.3); White Blood Cell 6.1 10^3/uL (4.4-10.8)
[2024-10-18] MEDS ORDERED: NALOXONE HCL 0.4 MG/ML VIAL ONE (14:09)
[2024-10-18] MEDS ORDERED: FLUMAZENIL 0.1 MG/ML INJ 10ML MDV IV ONE (14:09)
[2024-10-18] MEDS ORDERED: SODIUM CHLORIDE LOCK 10 ML ONE (14:10)
[2024-10-18] MEDS ORDERED: SIMETHICONE 40 MG/0.6 ML ORAL DROP ONE (14:11)
[2024-10-18] MEDS: LIDOCAINE VISCOUS 2% 15ML UD ONE (14:22)
[2024-10-18] MEDS: diphenhdrAMINE HCL 50 MG/1 ML VL ONE (14:25)
[2024-10-18] MEDS: MIDAZOLAM HCL 5 MG/ML-1ML VIAL ONE (14:25)
[2024-10-18] MEDS: fentaNYL CITRATE 100 MCG/2 ML VL ONE (14:25)
--- NOTE | 2024-10-18 15:29 | DVHOP2 ---
Operative Report DATE OF OPERATION: 10/18/24 PROCEDURE: Upper Endoscopy with biopsy. PREOPERATIVE INDICATION: The patient is a 54 -year-old male undergoing endoscopy for upper GI bleed POSTOPERATIVE DIAGNOSES: 1. 4 cm sliding-type hiatal hernia with the acute grade B erosive esophagitis with esophageal ulcers at the GE junction from which biopsies were obtained 2. Mild gastritis otherwise normal examination up to the 2nd and 3rd part of the duodenum with good bile drainage and no active bleed PROCEDURE PERFORMED BY: Monique Serrano GI NURSE: Damaso SCOPE: Olympus videoendoscope. ASA CLASS: 2. PREOPERATIVE MEDICATIONS: Versed 3 mg, Fentanyl 100 mcg, Benadryl 50 mg I administered moderate sedation throughout this _7_ minutes procedure. An independent trained observer pushed medications at my direction, and monitored the patient's level of consciousness and physiological status throughout. PROCEDURE IN DETAIL: After obtaining an informed consent, the patient was placed on left lateral decubitus position. The patient was then sedated with the above medications. A bite block was placed between his teeth. The endoscope was then passed through the oropharynx, into the esophagus, and through the stomach and pylorus up to the second and third part of the duodenum. The endoscope was then withdrawn. The 2nd and 3rd part of the duodenum and the duodenal bulb were normal. Duodenal biopsies were obtained The pre-pyloric area and antrum showed mild gastritis. Gastric biopsies were obtained. There was no fresh or old blood in the GI tract On retroflexion the fundus cardia and angularis were normal. The endoscope was then withdrawn into distal esophagus Patient had a 4 cm sliding-type hiatal hernia with the acute grade B erosive esophagitis with ulcers at the GE junction from which biopsies were obtained The remaining distal and proximal esophagus and oropharynx were unremarkable. The patient tolerated the procedure well without difficulty. COMPLICATIONS : None SPECIMENS: Duodenal biopsies Gastric biopsies GE junction biopsies DISPOSITION: Transfer back to the floor Stable PLAN: 1. Await for biopsy result 2. Will place pt on Protonix 40 mg bid po 3. Resume GI soft diet advance as tolerated; Lifestyle and dietary modifications for GERD 4. Outpatient follow up with me in 4-6 weeks to review results and discuss further management 5. Carafate 1 g p.o. 4 times a day MONIQUE SERRANO MD Oct 18, 2024 15:29
[2024-10-18] MEDS: PANTOPRAZOLE 40 MG TAB PO SCH (18:51)
[2024-10-18] MEDS: SUCRALFATE 1 GM/10 ML ORAL SUSP PO SCH (18:51)
--- NOTE | 2024-10-18 23:18 | DVHPN2 ---
Progress Note - Dictate Date Seen: Oct 18, 2024 Medical Necessity Reason Pt with a Central, PICC or Fol: No Subjective Patient was seen and evaluated in follow up. Patient underwent EGD today which revealed a 4 cm sliding-type hiatal hernia with the acute grade B erosive esophagitis with esophageal ulcers at the GE junction from which biopsies were obtained and mild gastritis otherwise normal examination up to the 2nd and 3rd part of the duodenum with good bile drainage and no active bleed. Patient started on Carafate. Patient will be resumed on a GI soft diet. H&H stable. Telemetry reviewed. vital signs Vital Sign Date Time Temp Pulse Resp B/P (MAP) Pulse Ox O2 Delivery O2 Flow Rate FiO2 10/18/24 21:00 98.9 70 84 150/96 (114) 98 98.9 10/18/24 20:00 Room Air* 0 21 Total Intake and Output 10/17/24 10/17/24 10/18/24 15:00 23:00 07:00 Intake Total 150 ml 1380 ml 900 ml Balance 150 ml 1380 ml 900 ml medications Current Medications Medications Dose Ordered Sig/Jakob Route Start Time Stop Time Status Last Admin Dose Admin Ceftriaxone Sodium 50 ml @ 100 mls/hr DAILY@09 IV 10/17/24 09:00 10/18/24 10:31 100 MLS/HR Metronidazole 100 ml @ 100 mls/hr Q8HR IV 10/16/24 22:00 10/18/24 21:05 100 MLS/HR Spironolactone 25 mg DAILY PO 10/17/24 10:00 10/17/24 10:33 25 MG Albuterol 2.5 mg Q4HPRN PRN NEB 10/16/24 14:15 Cancel Ipratropium [place] 0.5 mg Q4HPRN PRN NEB 10/16/24 14:15 Cancel Ondansetron HCl 4 mg Q4HP PRN IV 10/16/24 15:15 Diagnostic Test (Pha) 1 strip Q6HR 10/16/24 18:00 10/18/24 23:13 1 STRIP Insulin Human Regular Q6HR SC 10/16/24 18:00 10/18/24 23:12 2 UNITS Dextrose 50 ml UD PRN IV 10/16/24 16:00 Atorvastatin Calcium 40 mg HS PO 10/16/24 22:00 10/18/24 21:04 40 MG Pantoprazole Sodium 40 mg BID@0600,1700 PO 10/18/24 17:00 10/18/24 18:51 40 MG Sucralfate 1 gm QID@0600,1130,1700,2200 PO 10/18/24 17:00 10/18/24 21:03 1 GM objective GENERAL: Alert and oriented x 3. No acute distress. Obese. EYES: PERRL, EOMI. Anicteric. HENT: Moist mucous membranes. LUNGS: Clear to auscultation bilaterally. CARDIOVASCULAR: Regular rate and rhythm. ABDOMEN: Soft, nontender and nondistended. EXTREMITIES: No edema. NEUROLOGIC: No focal neurological deficits. SKIN: Warm, dry. laboratory and microbiology Laboratory Tests 10/18/24 12:41 10/18/24 05:35 Test 10/18/24 05:35 Range/Units Serum Glucose 109 H 74-106 mg/dL Problem List Chest pain. Syncope. Leukocytosis. Diabetes type 2, with hyperglycemia. Medication noncompliance. Hypertension. Obese. Assessment/Plan Continued all current supportive medical care. Lipitor. IV antibiotics as ordered. GI prophylactics. Carafate. Additional plan as per the hospital course. Plan discussed with: Patient REGINE RODRIGUEZ MD Oct 18, 2024 23:18
[2024-10-19] VITALS (7 sets, daily range): BP systolic 123–148; BP diastolic 85–95; PULSE 69–97; RESP 16–18; TEMP 97.7–98.4; O2SAT 98–99
--- NOTE | 2024-10-19 14:29 | DVHPN2 ---
Progress Note - Dictate Date Seen: Oct 19, 2024 Medical Necessity Reason Pt with a Central, PICC or Fol: No Subjective No new complaints Patient is tolerating a diet No further episodes of GI bleeding vital signs Vital Sign Date Time Temp Pulse Resp B/P (MAP) Pulse Ox O2 Delivery O2 Flow Rate FiO2 10/19/24 12:45 98.0 95 18 128/91 (103) 99 98.0 10/19/24 08:10 Room Air* 0 21 Total Intake and Output 10/18/24 10/18/24 10/19/24 15:00 23:00 07:00 Intake Total 100 ml 600 ml Balance 100 ml 600 ml medications Current Medications Medications Dose Ordered Sig/Jakob Route Start Time Stop Time Status Last Admin Dose Admin Ceftriaxone Sodium 50 ml @ 100 mls/hr DAILY@09 IV 10/17/24 09:00 10/19/24 10:43 100 MLS/HR Metronidazole 100 ml @ 100 mls/hr Q8HR IV 10/16/24 22:00 10/19/24 12:50 100 MLS/HR Spironolactone 25 mg DAILY PO 10/17/24 10:00 10/19/24 10:43 25 MG Albuterol 2.5 mg Q4HPRN PRN NEB 10/16/24 14:15 Cancel Ipratropium [place] 0.5 mg Q4HPRN PRN NEB 10/16/24 14:15 Cancel Ondansetron HCl 4 mg Q4HP PRN IV 10/16/24 15:15 Diagnostic Test (Pha) 1 strip Q6HR 10/16/24 18:00 10/19/24 12:00 1 STRIP Insulin Human Regular Q6HR SC 10/16/24 18:00 10/19/24 12:56 6 UNITS Dextrose 50 ml UD PRN IV 10/16/24 16:00 Atorvastatin Calcium 40 mg HS PO 10/16/24 22:00 10/18/24 21:04 40 MG Pantoprazole Sodium 40 mg BID@0600,1700 PO 10/18/24 17:00 10/19/24 05:44 40 MG Sucralfate 1 gm QID@0600,1130,1700,2200 PO 10/18/24 17:00 10/19/24 10:43 1 GM objective General: NAD, AAOX3 Chest: lung ely clear to auscultation Heart: RRR, no murmur Abdomen: non-distended, no tenderness to palpation, +BS laboratory and microbiology Laboratory Tests 10/18/24 12:41 10/18/24 05:35 Test 10/18/24 05:35 Range/Units Serum Glucose 109 H 74-106 mg/dL Problems(with codes): (1) Hiatal hernia with gastroesophageal reflux disease and esophagitis (2) Chest pain of unknown etiology (3) GI bleed Prognosis Plan Advance diet as tolerated Protonix 40 mg p.o. twice a day Carafate 1 g p.o. twice a day Patient is stable for discharge from GI point of view Outpatient follow up with me next available appointment to discuss elective colonoscopy and further management Lifestyle and dietary modifications for GERD, DC aspirin NSAIDs smoking and alcohol Plan discussed with: Other (Nurse Jean Baptiste) MONIQUE SOARES MD Oct 19, 2024 14:29
--- NOTE | 2024-10-19 14:47 | DVHDS2 ---
Discharge Summary Date of Admission Oct 16, 2024 at 15:01 Date of Discharge: Oct 19, 2024 Labs/Diagnostic Data: Laboratory Results Test 10/19/24 11:38 10/18/24 12:41 10/18/24 05:35 10/17/24 07:32 POC Glucose 253 mg/dl (70-106) White Blood Count 6.1 10^3/uL (4.4-10.8) Red Blood Count 3.56 10^6/uL (4.5-5.90) Hemoglobin 10.1 g/dL (13.5-17.5) Hematocrit 30.3 % (41.0-53.0) Mean Corpuscular Volume 85.0 fL (80.0-100.0) Mean Corpuscular Hemoglobin 28.2 pg (28.0-32.0) Mean Corpuscular Hemoglobin Concent 33.2 g/dL (32.0-36.0) Red Cell Distribution Width 15.6 % (11.8-14.3) Platelet Count 304 10^3/uL (140-450) Mean Platelet Volume 7.3 fL (6.9-10.8) Neutrophils (%) (Auto) 72.6 % (37.0-80.0) Lymphocytes (%) (Auto) 20.8 % (10.0-50.0) Monocytes (%) (Auto) 4.7 % (0.0-12.0) Eosinophils (%) (Auto) 1.4 % (0.0-7.0) Basophils (%) (Auto) 0.5 % (0.0-2.0) Neutrophils # (Auto) 4.5 10 ^3/uL (1.6-8.6) Lymphocytes # (Auto) 1.3 10 ^3/uL (0.4-5.4) Monocytes # (Auto) 0.3 10 ^3/uL (0-1.3) Eosinophils # (Auto) 0.1 10 ^3/uL (0-0.8) Basophils # (Auto) 0 10 ^3/uL (0-0.2) Nucleated Red Blood Cells 0.1 % Prothrombin Time 10.7 sec (9.3-11.8) Prothrombin Time INR 1.01 (0.9-1.15) Activated Partial Thromboplast Time 24.8 SEC (24.5-34.5) Sodium Level 139 mmol/L (136-145) Potassium Level 4.2 mmol/L (3.5-5.1) Chloride Level 108 mmol/L (98-107) Carbon Dioxide Level 24 mmol/L (20-31) Anion Gap 7 (5-15) Blood Urea Nitrogen 18 mg/dL (9-23) Creatinine 0.97 mg/dL (0.700-1.30) Glomerular Filtration Rate Calc 92 mL/min (>90) BUN/Creatinine Ratio 18.6 (10.0-20.0) Serum Glucose 109 mg/dL (74-106) Calcium Level 8.6 mg/dL (8.7-10.4) Total Bilirubin 0.5 mg/dL (0.2-1.0) Aspartate Amino Transferase (AST) 10 U/L (13-40) Alanine Aminotransferase (ALT) 18 U/L (7-40) Alkaline Phosphatase 87 U/L (46-116) Total Protein 5.8 g/dL (5.7-8.2) Albumin 3.5 g/dL (3.2-4.8) Test 10/16/24 11:47 10/16/24 10:33 10/16/24 00:00 Troponin I High Sensitivity 9 ng/L (</=54) Triglycerides Level 171 mg/dL (< 150) Cholesterol Level 147 mg/dL (< 200) LDL Cholesterol 89 mg/dL (< 100) HDL Cholesterol 36 mg/dL (40-59) Thyroid Stimulating Hormone (TSH) 1.05 uIU/mL (0.55-4.78) Hemoglobin A1c 7.7 % A1C (<5.7) B-Type Natriuretic Peptide 36.95 pg/mL (0-100) Urine Color Colorless (Yellow) Urine Clarity Clear (Clear) Urine pH 6.5 (5.0-9.0) Urine Specific [place] 1.016 (1.001-1.035) Urine Protein Negative (Negative) Urine Ketones Negative (Negative) Urine Blood Negative /uL (Negative) Urine Nitrite Negative (Negative) Urine Bilirubin Negative (Negative) Urine Urobilinogen Normal mg/dL (Negative) Urine Leukocyte Esterase Negative /uL (Negative) Urine RBC <1 /hpf (0 - 3) Urine Microscopic WBC < 1 /HPF (0-3) Urine Squamous Epithelial Cells None seen /hpf (<5) Urine Bacteria None seen /hpf (None Seen) Urine Glucose Normal mg/dL (Normal) Other Laboratory Tests 10/18/24 12:41 10/18/24 05:35 Brief Hx & Hospital Course: see dictated note Condition at Discharge: Fair Final Diagnosis/Problems List gi bleed Discharge Disposition: Home Discharge Instruct/Medications Diet: Regular Activity: No Restrictions, As Tolerated Follow Up/Referral: fu with dr Serrano in 4 wks Medications: resume home meds avoid asa/nsaids script to pharmacy Discharge Statement: "Patient was advised to return to the ER or call 911 if any headaches, dizziness, shortness of breath, chest pain, abdominal pain, bleeding, fevers, or worsening of medical condition. Patient was counseled about treatment plan, medications, possible side effects, patientverbalized understanding. All questions were answered to the best of my ability. This discharge took greater then 30 minutes in planning, reviewing documentation, counseling the patient, and discussing with other team members." ASSESSMENT ASSESSMENT Assessment gi bleed Date of Service: Oct 19, 2024 Billing Provider: ALEXIA BOUCHER MD Common Visit Codes: 96240-HKK/OBS DISCH DAY >30min ALEXIA BOUCHER MD Oct 19, 2024 14:47
[2024-10-19] MEDS ORDERED: PANT40TA2 PO (14:49)
[2024-10-19] MEDS ORDERED: SUCR1TAB31 PO (14:49)
--- NOTE | 2024-10-19 17:55 | DVHDS ---
DATE OF DISCHARGE: 10/19/2024 HISTORY OF PRESENT ILLNESS: The patient is a 54-year-old gentleman who was admitted with history of vomiting blood and red blood to rectum. He has previous history of congestive heart failure, hypertension, diabetes. HOSPITAL COURSE: The patient had a CT of the abdomen and pelvis that was unremarkable. He was seen in GI consult by Dr. Kimberly Serrano. The patient underwent upper endoscopy that showed a hiatal hernia with grade B erosive esophagitis and esophageal ulcers along with mild gastritis. Biopsies were obtained. The patient's hemoglobin is 10.1 at the time of admission. He has had no further bleeding. Echocardiogram done showed an ejection fraction of 30% with severe LVH. He was seen in Cardiology consult by Dr. Karen Najera. FINAL DIAGNOSES: Therefore: * GI bleeding with esophageal ulcers with esophagitis. * Chronic systolic heart failure. * Diabetes mellitus. * Hypertension. * Obesity. Time spent in discharge planning and review of plan with the patient and nursing was 38 minutes. MD NIDIA Wu/LALY TID: [id number] RECEIPT: [id number]
--- NOTE | 2024-10-19 22:53 | DVHPN2 ---
Progress Note - Dictate Date Seen: Oct 19, 2024 Medical Necessity Reason Pt with a Central, PICC or Fol: No Subjective Patient was seen and evaluated in follow up. No overnight events. Patient denies any cardiac symptoms. Patient is cardiac stable for discharge. Telemetry reviewed. vital signs Vital Sign Date Time Temp Pulse Resp B/P (MAP) Pulse Ox O2 Delivery O2 Flow Rate FiO2 10/19/24 08:15 97.7 76 17 144/89 (107) 99 97.7 10/18/24 20:00 Room Air* 0 21 Total Intake and Output 10/18/24 10/18/24 10/19/24 15:00 23:00 07:00 Intake Total 100 ml 600 ml Balance 100 ml 600 ml medications Current Medications Medications Dose Ordered Sig/Jakob Route Start Time Stop Time Status Last Admin Dose Admin Ceftriaxone Sodium 50 ml @ 100 mls/hr DAILY@09 IV 10/17/24 09:00 10/19/24 10:43 100 MLS/HR Metronidazole 100 ml @ 100 mls/hr Q8HR IV 10/16/24 22:00 10/19/24 12:50 100 MLS/HR Spironolactone 25 mg DAILY PO 10/17/24 10:00 10/19/24 10:43 25 MG Albuterol 2.5 mg Q4HPRN PRN NEB 10/16/24 14:15 Cancel Ipratropium [place] 0.5 mg Q4HPRN PRN NEB 10/16/24 14:15 Cancel Ondansetron HCl 4 mg Q4HP PRN IV 10/16/24 15:15 Diagnostic Test (Pha) 1 strip Q6HR 10/16/24 18:00 10/19/24 12:00 1 STRIP Insulin Human Regular Q6HR SC 10/16/24 18:00 10/19/24 12:56 6 UNITS Dextrose 50 ml UD PRN IV 10/16/24 16:00 Atorvastatin Calcium 40 mg HS PO 10/16/24 22:00 10/18/24 21:04 40 MG Pantoprazole Sodium 40 mg BID@0600,1700 PO 10/18/24 17:00 10/19/24 05:44 40 MG Sucralfate 1 gm QID@0600,1130,1700,2200 PO 10/18/24 17:00 10/19/24 10:43 1 GM objective GENERAL: Alert and oriented x 3. No acute distress. Obese. EYES: PERRL, EOMI. Anicteric. HENT: Moist mucous membranes. LUNGS: Clear to auscultation bilaterally. CARDIOVASCULAR: Regular rate and rhythm. ABDOMEN: Soft, nontender and nondistended. EXTREMITIES: No edema. NEUROLOGIC: No focal neurological deficits. SKIN: Warm, dry. laboratory and microbiology Laboratory Tests 10/18/24 12:41 10/18/24 05:35 Test 10/18/24 05:35 Range/Units Serum Glucose 109 H 74-106 mg/dL Problem List Chest pain. Syncope. Leukocytosis. Diabetes type 2, with hyperglycemia. Medication noncompliance. Hypertension. Obese. Assessment/Plan Continued all current supportive medical care. Lipitor. IV antibiotics as ordered. GI prophylactics. Carafate. Aldactone. Additional plan as per the hospital course. Plan discussed with: Patient REGINE RODRIGUEZ MD Oct 19, 2024 13:10
== END 2024-10-19 18:00 | disposition home or self-care (01) | DRG 242 ==
LOC: EDBD 10:25 → ER 10:25 → OVERFLOW 15:01 → TELE-WESTW 21:50
PROVIDERS: ADMIT Internal Medicine; ATTEND Internal Medicine
PROC: 0DB68ZX Excision of Stomach, Via Natural or Artificial Opening Endoscopic, Diagnostic (ICD-10-PCS; 2024-10-18)
PROC: 0DB48ZX Excision of Esophagogastric Junction, Via Natural or Artificial Opening Endoscopic, Diagnostic (ICD-10-PCS; 2024-10-18)
PROC: 0DB98ZX Excision of Duodenum, Via Natural or Artificial Opening Endoscopic, Diagnostic (ICD-10-PCS; principal; 2024-10-18 13:45)
DX: K22.11 Ulcer of esophagus with bleeding (principal); I11.0 Hypertensive heart disease with heart failure; I95.9 Hypotension, unspecified; I50.22 Chronic systolic (congestive) heart failure; D72.829 Elevated white blood cell count, unspecified; E11.65 Type 2 diabetes mellitus with hyperglycemia; E66.9 Obesity, unspecified; K29.70 Gastritis, unspecified, without bleeding; K44.9 Diaphragmatic hernia without obstruction or gangrene; M10.9 Gout, unspecified; K25.7 Chronic gastric ulcer without hemorrhage or perforation; Z91.148 Patient's other noncompliance with medication regimen for other reason; Z68.30 Body mass index [BMI] 30.0-30.9, adult; Z79.899 Other long term (current) drug therapy
CPT/HCPCS: 36415; 43239; 71045; 74176; 80048; 80053; 80061; 81001; 82962; 83036; 83880; 84443; 84484; 85025; 85610; 85730; 87040; 93306; 96365; 99291; 99292; G0378; J1815; J2250; J2470; J3490